=== PATIENT | female | born 1965 | race Two or more races ===

== ENCOUNTER 2021-11-09 09:33 | Emergency (ER) | payer MEDICAID, SELFPAY ==
--- NOTE | ~2021-11-09 | XR_ITS ---
EXAMINATION: BILATERAL SHOULDER X-RAY CLINICAL INFORMATION: Atraumatic bilateral shoulder pain COMPARISON: None TECHNIQUE: 3 views of each shoulder FINDINGS: Right: Bone alignment is normal. No fracture or dislocation is seen. There is mild arthritis at the acromioclavicular joint. The glenohumeral joint is normal. There may be soft tissue swelling adjacent to the acromioclavicular joint. Left: Bone alignment is normal. There are recent appearing left third and fourth lateral rib fractures. There is adjacent pleural thickening. There are old-appearing fractures of the left anterior second and fifth ribs. No shoulder fracture is seen. There is mild arthritis at the glenohumeral and acromioclavicular joints. Soft tissues about the shoulder are normal. XR/XR shoulder LT min 2V IMPRESSION: Right: Mild arthritis at the acromioclavicular joint. Left: Recent appearing left rib fractures. No shoulder fracture. Mild arthritis at the glenohumeral and acromioclavicular joints.
--- NOTE | ~2021-11-09 | XR_ITS ---
EXAMINATION: BILATERAL SHOULDER X-RAY CLINICAL INFORMATION: Atraumatic bilateral shoulder pain COMPARISON: None TECHNIQUE: 3 views of each shoulder FINDINGS: Right: Bone alignment is normal. No fracture or dislocation is seen. There is mild arthritis at the acromioclavicular joint. The glenohumeral joint is normal. There may be soft tissue swelling adjacent to the acromioclavicular joint. Left: Bone alignment is normal. There are recent appearing left third and fourth lateral rib fractures. There is adjacent pleural thickening. There are old-appearing fractures of the left anterior second and fifth ribs. No shoulder fracture is seen. There is mild arthritis at the glenohumeral and acromioclavicular joints. Soft tissues about the shoulder are normal. XR/XR shoulder RT min 2V IMPRESSION: Right: Mild arthritis at the acromioclavicular joint. Left: Recent appearing left rib fractures. No shoulder fracture. Mild arthritis at the glenohumeral and acromioclavicular joints.
--- NOTE | ~2021-11-09 | XR_ITS ---
EXAMINATION: BILATERAL KNEE X-RAY CLINICAL INFORMATION: Bilateral knee pain COMPARISON: None TECHNIQUE: 4 views of each knee FINDINGS: Right: There is evidence of old trauma to the right distal lateral femur. There are surgical tacks or anchors projecting over the right lateral femoral condyle. There is arthritis at the patellofemoral and femoral femoral tibial joints with joint space narrowing and osteophyte formation. There is a moderate joint effusion. There is significant periarticular soft tissue ossification Left: There is a transverse lucency in the left patella questionable for a fracture. This appears larger than a bipartite patella. There is up to 1 cm displacement. There is a single surgical tack or anchor seen in the left femoral condyle. There is severe arthritis with joint space narrowing and osteophyte formation at the patellofemoral and femoral tibial joints. There is a joint effusion. XR/XR knee LT 4V IMPRESSION: Right knee: Old trauma to the distal femur. Surgical tacks or anchors over the lateral femoral condyle. Severe arthritis, joint effusion and significant periarticular soft tissue ossification. Left knee: Displaced transverse fracture of the patella. Evidence of previous surgery to the lateral femoral condyle. Severe arthritis and joint effusion.
--- NOTE | ~2021-11-09 | XR_ITS ---
EXAMINATION: BILATERAL KNEE X-RAY CLINICAL INFORMATION: Bilateral knee pain COMPARISON: None TECHNIQUE: 4 views of each knee FINDINGS: Right: There is evidence of old trauma to the right distal lateral femur. There are surgical tacks or anchors projecting over the right lateral femoral condyle. There is arthritis at the patellofemoral and femoral femoral tibial joints with joint space narrowing and osteophyte formation. There is a moderate joint effusion. There is significant periarticular soft tissue ossification Left: There is a transverse lucency in the left patella questionable for a fracture. This appears larger than a bipartite patella. There is up to 1 cm displacement. There is a single surgical tack or anchor seen in the left femoral condyle. There is severe arthritis with joint space narrowing and osteophyte formation at the patellofemoral and femoral tibial joints. There is a joint effusion. XR/XR knee RT 4V IMPRESSION: Right knee: Old trauma to the distal femur. Surgical tacks or anchors over the lateral femoral condyle. Severe arthritis, joint effusion and significant periarticular soft tissue ossification. Left knee: Displaced transverse fracture of the patella. Evidence of previous surgery to the lateral femoral condyle. Severe arthritis and joint effusion.
--- NOTE | ~2021-11-09 | CT_ITS ---
EXAMINATION: CT BRAIN, CT CERVICAL CERVICAL SPINE, CT CHEST, CT ABDOMEN PELVIS WITH CONTRAST. CLINICAL INFORMATION: Status post fall. COMPARISON: None TECHNIQUE: 5 minutes thin axial and reformatted 2 mm thin sagittal and coronal images of brain were obtained. Axial 3 mm thin and reformatted 2 mm thin sagittal and axial images of cervical spine were obtained. DLP [id number]. Axial 5 minutes thin and reformatted 3 mm thin sagittal coronal images of chest, abdomen pelvis were obtained following IV however mL Omnipaque 350. DLP [id number] FINDINGS: Brain: There is no acute intra-axial, extra-axial bleed, masses or midline shift. There is no acute infarction evolution. There is no edema. The warren to white matter difference is maintained. There is dystrophic calcification right basal ganglia. The lateral ventricles are symmetrical in size and configuration without enlargement. Bone windows reveal no calvarial abnormality. Bilateral paranasal sinuses and mastoid air cells are well-aerated. Cervical spine: There is mild straightening of cervical lordosis. The vertebral heights and alignment is normal. There is mild loss of C5-C6 and C6-C7 disc heights with mild ventral spondylosis C4-C5 through C6-C7 disc levels. The craniovertebral junction and the C1-C2 alignment is normal. No visible acute fracture, dislocation or lytic process seen. The neural foramina are patent bilaterally. The prevertebral and paravertebral soft tissues are normal. The airway is widely patent. The thyroid lobes, submandibular and parotid glands are symmetrical and normal. Moderate hypertrophic changes are seen in the bilateral first costal vertebral junction. CHEST: The lungs are well-expanded and clear of acute pneumonic process. There are no pulmonary nodules, mass or consolidation. Minimal atelectatic changes in the right lung base and lingula. The heart size and the great vessels are normal caliber. The thoracic aorta is of normal caliber. No pericardial effusion seen. The central trachea and the bronchi widely patent. The thyroid lobes are symmetrical and normal. There is no pericardial or pleural effusions. The axilla and chest wall appears unremarkable. There are old healed left second, third, fourth, fifth rib fractures. No acute rib fracture is visualized. There is no lytic or sclerotic process. Abdomen and pelvis: The liver is homogeneous in density, normal size, shape and position. There is no focal lesion or intrahepatic ductal dilatation. There are no radiopaque gallstones or wall thickening. The spleen and pancreas is unremarkable. Bilateral adrenal glands are normal. There are lobulated bilateral kidneys with scarring in both renal cortical cysts. Multiple clusters of large radiopaque calculi lower pole left kidney without caliectasis. The kidney stones measure approximately 1 cm. There are extrarenal bilateral kidney pelvises. The pancreas is homogeneous in density and normal size. The abdominal aorta is of normal caliber. No retroperitoneal lymph nodes or mass seen. There is scattered stool and gas seen in colon without any significant distention. The small bowel loops are normal caliber. There is no free air or free fluid. Abdominal wall appears unremarkable. The urinary bladder appears unremarkable. No free fluid. The uterus is anteverted and appears unremarkable. There is no acute fracture or bony abnormality involving the pelvis or the lumbar spine. CT/CT cervical spine wo con IMPRESSION: No acute intracranial process seen. There is no acute fracture or dislocation in cervical spine. However there is mild straightening of cervical lordosis with mild degenerative disc changes C5-C6 and C6-C7 disc levels with spondylosis. There is no acute intrathoracic process. Lung contusion or pneumothorax. There are old healed left upper rib fractures. No acute rib fracture seen. There is no acute intra-abdominal process seen. There are bilateral cortical scars and bilateral extrarenal kidney pelvises. There are mild obstructive clusters of 1 cm stone lower pole left kidney. Mild constipation. No retroperitoneal lymph nodes or hematoma seen. Small umbilical hernia
[2021-11-09 09:38] VITALS: BP 145/87; PULSE 113; RESP 17; TEMP 37.2; O2SAT 96; BMI 30.1
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
[2021-11-09 12:14] LABS: MANUAL DIFF FLAG NO
[2021-11-09 12:17] LABS: Basophils Percent Auto 0.7 % (0-2); Eosinophils Absolute Auto 0.7 X10*3/uL (0.0-0.4); Eosinophils Percent Auto 11.6 % (0-4); Hematocrit 35.4 % (37.0-47.0); Hemoglobin 11.8 g/dl (12.0-16.0); Imm Gran Abs Auto 0.02 X10*3/uL (0.00-0.03); Imm Gran Pct Auto 0.3 % (0.0-0.4); Lymphocytes Absolute Auto 1.7 X10*3/uL (1.2-4.9); Lymphocytes Percent Auto 27.9 % (20-40); Mean Corpuscular HGB Conc 33.3 g/dl (31.0-35.0); Mean Corpuscular Volume 95.9 fL (80.0-98.0); Mean Platelet Volume 8.8 fL (9.4-12.3); Monocytes Absolute Auto 0.4 X10*3/uL (0.1-1.2); Neutrophils Absolute Auto 3.3 x10*3/uL (2.0-8.3); Neutrophils Percent Auto 53.5 % (45-73); Platelet Count 295 X10*3/uL (160-400); Red Blood Count 3.69 X10*6/uL (4.20-5.50); Red Cell Distribution Width 14.5 % (11.0-16.0); White Blood Count 6.1 X10*3/uL (4.8-10.8)
[2021-11-09 12:24] LABS: INTERNATIONAL NORM RATIO 1.1 (0.9-1.1)
[2021-11-09 12:30] LABS: Alanine Aminotransferase 21 U/L (0-31); Albumin Level 4.4 g/dL (3.5-5.0); Alkaline Phosphatase 104 U/L (39-117); Anion Gap 11 (12-20); Aspartate Amino Transferase 21 U/L (5-31); Bilirubin Total 0.4 mg/dL (0.0-1.0); Blood Urea Nitrogen 25 mg/dL (9-16); Calcium 9.9 mg/dL (8.4-10.2); Carbon Dioxide 22 mmol/L (22-29); Chloride 111 mmol/L (96-108); Creatinine Clr Calc Pharmacy 64.5; Estimated Glomerular Filt Rate 59; Glucose Random 112 mg/dL (60-115); Magnesium 1.7 mg/dL (1.6-2.6); Potassium 3.9 mmol/L (3.3-5.1); Sodium 140 mmol/L (135-145); Total Protein 7.8 g/dL (6.5-8.0)
[2021-11-09] MEDS: iohexoL 350 MG/ML 100 ML INFUS..BTL IV (13:53)
[2021-11-09] MEDS: 0.9 % Sodium Chloride 1,000 ML 999 ML IVCONT (15:21)
[2021-11-09] MEDS: Cyclobenzaprine HCl 10 MG TABLET PO (15:22)
[2021-11-09] MEDS: Ketorolac Tromethamine 30 MG/ML VIAL IVPUSH (15:22)
--- NOTE | 2021-11-09 16:48 | PC.NURSE ---
PT AWAKE, ALERT AND ORIENTED X 3. SKIN WARM AND DRY. RESP UNLABORED. REPORTS FEELING BETTER AFTER MEDICATION AND FLUIDS. PO CHALLENGE PROVIDED. PLAN IS FOR DC HOME. PT AWARE AND AGREEABLE TO PLAN
[2021-11-09 16:49] VITALS: BP 140/82; PULSE 94; RESP 18; O2SAT 99
== END 2021-11-09 16:57 | disposition home or self-care (01) ==
PROVIDERS: Physician Assistant Medical; Emergency Provider Emergency Medicine
DX: S83.92XA Sprain of unspecified site of left knee, initial encounter (principal); S83.91XA Sprain of unspecified site of right knee, initial encounter; W18.2XXA Fall in (into) shower or empty bathtub, initial encounter; K59.00 Constipation, unspecified; R10.12 Left upper quadrant pain; M19.012 Primary osteoarthritis, left shoulder; M19.011 Primary osteoarthritis, right shoulder; M25.512 Pain in left shoulder; M25.511 Pain in right shoulder; K42.9 Umbilical hernia without obstruction or gangrene; Y93.E1 Activity, personal bathing and showering; Y92.012 Bathroom of single-family (private) house as the place of occurrence of the external cause; Y99.9 Unspecified external cause status
CPT/HCPCS: 36415; 70450; 71260; 72125; 73030; 73564; 74177; 80053; 83735; 85025; 85610; 96361; 96374; 99284; 99285; 99291; J1885; Q9967

== ENCOUNTER 2022-04-15 12:20 | Emergency (ER) | payer MEDICAID, SELFPAY ==
[2022-04-15 12:28] VITALS: BP 130/72; PULSE 62
[2022-04-15 12:31] VITALS: BP 127/75; PULSE 77; RESP 18; TEMP 36.8; O2SAT 98; BMI 28.3
[2022-04-15 14:18] LABS: Appearance Urine Clear; Color Urine Yellow; Glucose Urine UA Negative (Negative); Leukocyte Esterase Urine Moderate (2+) (Negative); Nitrite Urine Negative (Negative); PH 6.5 (5.0-9.0); Urine Blood Negative (Negative); Urine Ketones Negative (Negative); Urine Protein Negative (Neg-Trace)
--- NOTE | 2022-04-15 14:18 | ED.EXTPRO ---
HPI - Extremity Problem General Chief complaint: Extremity Problem Stated complaint: L KNEE PAIN SINCE T-I,NO INJURY PER EMS Time Seen by Provider: 04/15/22 13:15 Source: patient Mode of arrival: EMS Limitations: no limitations History of Present Illness HPI Narrative: Patient presents emergency department for evaluation of left knee pain. She states that she has chronic bilateral knee pain that has been ongoing for a couple of years. She has had surgery to the bilateral knees, had an x-ray earlier this year which she states indicated severe arthritis. However, she states since 399 today the pain has been worse, she feels as though she is having spasming of her muscles. No recent trauma or potential injury to the knee. No pain swelling numbness or tingling to the distal extremity. Denies past history of DVT/ PE. States that Tylenol/ ibuprofen have not been helpful for the pain. She is currently receiving Vivitrol injections. Related Data Previous Rx's Medication Instructions Recorded acetaminophen 500 mg tablet 1,000 mg PO QID PRN fever or pain 11/09/21 (Tylenol Extra Strength) #14 tabs cyclobenzaprine 10 mg tablet 10 mg PO Q8H PRN Muscle spasm #14 11/09/21 tabs cyclobenzaprine 10 mg tablet 10 mg PO Q8H PRN muscle spasm #14 04/15/22 tabs Allergies Allergy/AdvReac Type Severity Reaction Status Date / Time No Known Allergies Allergy Verified 11/09/21 10:07 Review of Systems Review of Systems: Constitutional: No weight loss, fever, chills, weakness or fatigue. Skin: No rash or itching. Cardiovascular: No chest pain, chest pressure or chest discomfort. No palpitations or pedal edema. Respiratory: No shortness of breath, cough or sputum production. Gastrointestinal: No , nausea, vomiting or diarrhea. No abdominal pain Genitourinary: No burning micturition. No urinary frequency or incontinence. Musculoskeletal: Positive knee pain Psychiatric: No depression or anxiety. Yes all other systems are reviewed and are negative [facility] Past Medical History Attestation statement: The following information was validated with the patient. Source: old records reviewed Social History Social History Advance Directives: Yes Advance Directives Information Provided: Yes Advance Directives on File: No Physical Exam Vital Signs: Vital Signs: Last Vital Signs Temp 98.3 F 04/15/22 12:31 Pulse 77 04/15/22 12:31 Resp 18 04/15/22 12:31 BP 127/75 04/15/22 12:31 Pulse Ox 98 04/15/22 12:31 O2 Del Method 04/15/22 12:31 BMI result Body Mass Index 28.3 Appearance: Alert.?Oriented to person, place and time. No acute distress.?Normal affect. Eyes: Pupils equal, round and reactive to light.? ENT: Pharynx normal.?? Neck: Normal inspection.? Neck supple.?? CVS: Heart sounds normal. Normal heart rate and rhythm.? Pulses normal.?? Respiratory: No respiratory distress.? Lung sounds clear to auscultation bilaterally?? Abdomen: Soft and non-tender. Normoactive bowel sounds. No pulsatile mass.?? Skin: Skin warm and dry.? Normal skin color.? Normal skin turgor.?? Extremities: No lower extremity edema.? No calf ttp. left knee with presence of effusion, no erythema, warmth, or rash. Posterior drawer test negative. Anterior drawer test negative. Valgus/ Varus stress test negative. Neuro: Moves all extremities spontaneously. Sensation intact bilaterally. CN II-XII intact. No focal neuro deficits. Ambulates with Slow antalgic gait and the use of a cane Course Course Course Narrative: Patient is a 57-year-old female with history of bilateral knee surgery presenting for evaluation of acute on chronic left knee pain since this morning which is atraumatic. On physical exam there is presence of and effusion which appears to be chronic based on prior visit/XR imaging however no signs of infection/ septic arthritis. Has good range of motion actively. No laxity on exam. XR from November 2021 reveals severe arthritic changes. She is not currently following with an research compliance specialist. in the past she has had some relief with the use of Flexeril as she feels that it decreases muscular spasm in this area. She is currently using a cane. Discussed plan of care for discharge home, rest, ice, compression with Chriss bandage, elevation of the extremity, Tylenol/ ibuprofen, cyclobenzaprine to use as needed. Advised outpatient follow-up with her primary care provider, in addition to orthopedic follow-up as she does have severe arthritis. Patient verbalizes understanding, she is ambulatory with an antalgic gait and use of her cane. All questions were answered. MDM - Extremity (Nontraumatic) Lab Data Labs: Lab Results 04/15/22 Range/Units 14:11 Urine Color Yellow Urine Appearance Clear Urine pH 6.5 (5.0-9.0) Ur Specific Hallock 1.020 (1.005-1.025) Urine Protein Negative (Neg-Trace) mg/dL Urine Glucose (UA) Negative (Negative) mg/dL Urine Ketones Negative (Negative) mg/dL Urine Blood Negative (Negative) Urine Nitrite Negative (Negative) Ur Leukocyte Esterase Moderate (2+) H (Negative) Urine RBC 0-2 (0-2) /HPF Urine WBC 21-50 H (0-5) /HPF Ur Squamous Epith Cells 3-5 (0-2) /HPF Urine Bacteria None Seen (None Seen) Hyaline Casts 0-2 (0-2) /LPF Discharge Plan Discharge Clinical Impression: Arthritis of knee, left Patient Disposition: Home, Self-Care Instructions: Osteoarthritis (ED) Additional Instructions: You can take ibuprofen 200 mg, 3 tablets (600mg) every 6-8 hours as needed for pain, in addition to Tylenol 500 mg, 2 tablets (1,000mg) every 4-6 hours as needed for pain, but not to exceed 3 doses daily (3,000mg).? You have been given a prescription for cyclobenzaprine, a muscle relaxer, to help with the spasming to the knee, as you have taken this in the past and it was helpful. It may make you drowsy, do not drive or drink alcohol while taking this medication. Be sure to rest, apply ice to the knee, use Chriss bandage for compression, elevate your knee when possible, continue using your cane when walking. Contact your primary care provider to arrange for a follow-up visit. As we discussed, you may consider follow-up with Orthopedics as this has been chronic/ ongoing for you, and you do have severe arthritis. Prescriptions: New cyclobenzaprine 10 mg tablet 10 mg PO Q8H PRN (Reason: muscle spasm) Qty: 14 0RF No Action acetaminophen [Tylenol Extra Strength] 500 mg tablet 1,000 mg PO QID PRN (Reason: fever or pain) Qty: 14 0RF cyclobenzaprine 10 mg tablet 10 mg PO Q8H PRN (Reason: Muscle spasm) Qty: 14 0RF
[2022-04-15 14:22] LABS: Bacteria Urine None Seen (None Seen); Hyaline Casts Urine 0-2 /LPF (0-2); RBC Urine 0-2 /HPF (0-2); WBC Urine 21-50 /HPF (0-5)
[2022-04-15] MEDS: Cyclobenzaprine HCl 10 MG TABLET PO (14:48)
[2022-04-15] MEDS: Ibuprofen 600 MG TABLET PO (14:48)
== END 2022-04-15 14:52 | disposition home or self-care (01) ==
PROVIDERS: Nurse Practitioner Family; Emergency Provider Emergency Medicine
DX: M17.12 Unilateral primary osteoarthritis, left knee (principal); M25.562 Pain in left knee
CPT/HCPCS: 81001; 99283